=== PATIENT | male | born 1995 | race Caucasian/White ===

== ENCOUNTER 2017-01-10 18:45 | Emergency (ER) | payer BC ==
[~2017-01-10] VITALS: Ht 177.8 cm; Wt 81.8 kg
[~2017-01-10 18:45] MED LIST: NO HOME MEDICATIONS
[2017-01-10 18:48] VITALS: PULSE 82; TEMP 98.7
[2017-01-10 19:50] LABS: PH 5 (5-8); SQUAMOUS EPITHELIAL 0-2 /hpf; URINE APPEARANCE Hazy; URINE BACTERIA None Seen /hpf; URINE BILIRUBIN Negative (NEGATIVE); URINE BLOOD Negative (NEGATIVE); URINE COLOR Yellow; URINE GLUCOSE Negative (NEGATIVE); URINE KETONE Negative (NEGATIVE); URINE RBC 0-2 /hpf; URINE UROBILINOGEN Negative (NEGATIVE); URINE WBC 0-2 /hpf
[2017-01-10 19:58] LABS: ADJUSTED CALCIUM 8.9 mg/dL (8.4-10.2); ALBUMIN 4.8 gm/dL (3.5-5.0); BILIRUBIN,TOTAL 0.9 mg/dL (0.0-1.0); CALCIUM 9.5 mg/dL (8.4-10.2); CREATININE, serum 1.11 mg/dL (0.66-1.25); TOTAL PROTEIN 8.1 gm/dL (6.4-8.2)
[2017-01-10 20:23] LABS: BASO % 0.3 % (0.0-2.0); EOS # 0.1 (0.0-0.7); EOS % 2.2 % (0-4.0); GRAN # 3.5 (1.4-6.5); GRAN % 59.4 % (42.2-75.2); HEMATOCRIT 46.4 % (42.0-52.0); HEMOGLOBIN 16.1 g/dl (13.5-18.0); LYMPH # 1.7 (1.2-3.4); LYMPH % 29.1 % (20.0-51.0); MEAN CELL VOLUME 85 fl (80.0-100.0); MEAN CORPUSCULAR HEMOGLOBIN 30 pg (27.0-31.0); MEAN CORPUSCULAR HGB CONC 35 g/dl (33.0-37.0); MEAN PLATELET VOLUME 10.1 fl (7.4-10.4); MONO # 0.5 (0.1-0.6); MONO % 8.8 % (1.7-9.3); PLATELET COUNT 287 K/mm3 (130-400); RED BLOOD COUNT 5.46 M/mm3 (4.20-5.60); REDCELL DISTRIBUTION WIDTH-CV 12.1 % (11.5-14.5); WHITE BLOOD COUNT 5.9 K/mm3 (4.8-10.8)
[2017-01-10] MEDS ORDERED: NORCO 325 MG-51 TAB PO (21:59)
[2017-01-10 22:16] VITALS: BP 136/87
== END 2017-01-10 22:18 | disposition home or self-care (01) ==
LOC: COL.ER 18:45
PROVIDERS: Nurse Practitioner
DX: S30.0XXA Contusion of lower back and pelvis, initial encounter (principal); V80.018A Animal-rider injured by fall from or being thrown from other animal in noncollision accident, initial encounter; Y93.19 Activity, other involving water and watercraft
CPT/HCPCS: J1170; J7030; Q9967

== ENCOUNTER 2017-11-06 18:07 | Emergency (ER) | payer SELFPAY ==
[~2017-11-06] VITALS: Ht 177.8 cm; Wt 79.5 kg
[~2017-11-06 18:07] MED LIST changes: +NORCO 325 MG-51 TAB PO
[2017-11-06 18:11] VITALS: TEMP 97.2
[2017-11-06] MEDS ORDERED: NORCO 325 MG-51 TAB PO (19:12)
[2017-11-06 20:01] VITALS: BP 128/92; PULSE 71
== END 2017-11-06 20:00 | disposition home or self-care (01) ==
LOC: COL.ER 18:07
DX: S53.104A Unspecified dislocation of right ulnohumeral joint, initial encounter (principal); V80.018A Animal-rider injured by fall from or being thrown from other animal in noncollision accident, initial encounter
CPT/HCPCS: J1170; J2405; J2704; J7030

== ENCOUNTER 2019-03-25 20:35 | Emergency (ER) | payer BC ==
[~2019-03-25] VITALS: Ht 177.8 cm; Wt 81.8 kg
[2019-03-25 20:51] VITALS: BP 170/90; TEMP 98.1
[2019-03-25 21:54] LABS: BASO % 0.3 % (0.0-2.0); EOS # 0.2 (0.0-0.7); GRAN # 4.7 (1.4-6.5); GRAN % 61.4 % (42.2-75.2); HEMATOCRIT 47.3 % (42.0-52.0); LYMPH % 26.3 % (20.0-51.0); MEAN CELL VOLUME 85 fl (80.0-100.0); MEAN CORPUSCULAR HEMOGLOBIN 29 pg (27.0-31.0); MEAN CORPUSCULAR HGB CONC 34 g/dl (33.0-37.0); MONO # 0.7 (0.1-0.6); MONO % 8.7 % (1.7-9.3); PLATELET COUNT 286 K/mm3 (130-400); RED BLOOD COUNT 5.55 M/mm3 (4.20-5.60); REDCELL DISTRIBUTION WIDTH-CV 11.9 % (11.5-14.5)
[2019-03-25 21:57] LABS: COLLECTION METHOD CLEAN CATCH
[2019-03-25 22:02] LABS: ALANINE AMINOTRANSFERASE 14 U/L (21-72); ALBUMIN 4.5 gm/dL (3.5-5.0); ALKALINE PHOSPHATASE 63 U/L (50-136); ANION GAP 10 mmol/L (7-16); AST,SGOT 58 U/L (15-37); BILIRUBIN,TOTAL 0.4 mg/dL (0.0-1.0); BLOOD UREA NITROGEN 17 mg/dL (9-20); C-REACTIVE PROTEIN < 0.5 mg/dL (0.0-0.9); CALCIUM 9.1 mg/dL (8.4-10.2); CARBON DIOXIDE 26 mmol/L (22-30); CHLORIDE 104 mmol/L (98-107); CREATININE, serum 1.15 (0.66-1.25); GLUCOSE 100 mg/dL (74-106); POTASSIUM 3.3 mmol/L (3.4-5.0); SODIUM 140 mmol/L (137-145); TOTAL PROTEIN 7.6 gm/dL (6.4-8.2)
[2019-03-25 22:05] LABS: AMORPHOUS CRYSTAL Present /uL; MUCOUS Present /lpf; PH 6 (5-8); SQUAMOUS EPITHELIAL 0-2 /hpf; URINE APPEARANCE Hazy; URINE BACTERIA None Seen /hpf; URINE BILIRUBIN Negative (NEGATIVE); URINE BLOOD Negative (NEGATIVE); URINE COLOR Yellow; URINE GLUCOSE Negative (NEGATIVE); URINE KETONE Negative (NEGATIVE); URINE LEUKOCYTE ESTERASE Negative (NEGATIVE); URINE NITRATE Negative (NEGATIVE); URINE PROTEIN(semi-quant) Negative (NEGATIVE); URINE RBC 0-2 /hpf; URINE UROBILINOGEN Negative (NEGATIVE)
[2019-03-25 23:17] VITALS: PULSE 77
== END 2019-03-25 23:17 | disposition home or self-care (01) ==
LOC: COL.ER 20:35
PROVIDERS: Nurse Practitioner
DX: F41.9 Anxiety disorder, unspecified (principal); R53.83 Other fatigue
CPT/HCPCS: J2405; J7030